=== PATIENT | female | born 1980 | race Caucasian/White ===

== ENCOUNTER 2020-10-21 03:29 | Emergency (ER) | payer OTHER ==
[~2020-10-21] VITALS: Ht 162.5 cm; Wt 78.5 kg
[2020-10-21 04:11] LABS: HEMATOCRIT 41.4 % (37.0-47.0); MEAN CORPUSCULAR HGB 34.1 pg (27.0-31.0); MEAN CORPUSCULAR HGB CONC 34.1 g/dl (33.0-37.0); MEAN PLATELET VOLUME 9.7 fl (9.6-12.3); PLATELET COUNT AUTOMATED 348 10*3/uL (130-400); RED BLOOD COUNT 4.14 10*6/uL (4.10-5.10); RED CELL DISTRI WIDTH 12.8 % (0-14.5)
[2020-10-21 04:12] LABS: BILIRUBIN Negative (Negative); BLOOD Negative (Negative); CLARITY Clear (Clear); COLOR Yellow (Yellow); GLUCOSE Negative (Negative); KETONE Trace (Negative); LEUKO ESTERASE Negative (Negative); NITRITE Negative (Negative); PH 5.5 (4.5-8.0); SPECIFIC GRAVITY 1.015 (1.001-1.030)
[2020-10-21 04:22] LABS: BUN 6 mg/dl (7-24); CHLORIDE 109 mmol/L (98-107); CREATININE 0.71 mg/dL (0.55-1.02); POTASSIUM 3.7 mmol/L (3.5-5.1); SODIUM 140 mmol/L (136-145)
[2020-10-21 04:25] LABS: EPITHELIAL CELLS 41-50
[2020-10-21 04:34] LABS: ATYPICAL LYMPHS 1 % (0-0); PLATELET SUFFICIENCY NORMAL (NORMAL); TOTAL CELLS COUNTED 100 #CELLS
== END 2020-10-21 05:31 | disposition home or self-care (01) ==
LOC: ED 03:29
PROVIDERS: Internal Medicine
DX: N20.0 Calculus of kidney (principal); Z88.0 Allergy status to penicillin